=== PATIENT | male | born 1955 | race Native Hawaiian/Other Pacific Islander ===

== ENCOUNTER 2022-03-22 09:04 | Outpatient (CLI) | payer OTHER | END 2022-03-22 18:50 | disposition home or self-care (01) | LOC: US 09:04 | PROVIDERS: ATTEND Nurse Practitioner Family | DX: R94.4 Abnormal results of kidney function studies (principal); R79.89 Other specified abnormal findings of blood chemistry ==

== ENCOUNTER 2022-06-07 09:54 | Outpatient (CLI) | payer OTHER ==
[~2022-06-07 09:54] MED LIST: ALLO300T23 PO; CRESTOR20 MG PO; FINA5TAB2 PO; LEVO0.0529 PO; MIDODRINE5 MG PO; TAMS0.4C PO
== END 2022-06-07 20:21 | disposition home or self-care (01) ==
LOC: US 09:54
PROVIDERS: ATTEND Nurse Practitioner Family
DX: Z13.6 Encounter for screening for cardiovascular disorders (principal); Z87.891 Personal history of nicotine dependence; Z09 Encounter for follow-up examination after completed treatment for conditions other than malignant neoplasm

== ENCOUNTER 2023-04-18 01:55 | Emergency (ER) | payer OTHER ==
[~2023-04-18] VITALS: Ht 195.6 cm; Wt 126.1 kg
[2023-04-18 02:20] LABS: PLATELET COUNT 243 K/uL (142-355)
[2023-04-18 02:28] LABS: POTASSIUM 3.9 mmol/L (3.6-5.2)
[2023-04-18 02:42] LABS: PARTIAL THROMBOPLASTIN TIME 30.3 SECONDS (23.9-36.7)
[2023-04-18 05:20] VITALS: BP 101/66; TEMP 98.1
== END 2023-04-18 05:20 | disposition home or self-care (01) ==
LOC: ED 01:55
PROVIDERS: Family Medicine
DX: R07.89 Other chest pain (principal)
CPT/HCPCS: 36415; 80053; 84484; 85027; 85610; 85730; 93005; 96374; 99284; J1885